=== PATIENT | female | born 1935 | race African-American/Black ===

== ENCOUNTER 2019-03-20 13:08 | Inpatient (IN) | payer MEDICARE, OTHER ==
[~2019-03-20] VITALS: Ht 154.9 cm; Wt 90.7 kg
[2019-03-20 14:19] LABS: BASOPHILS % 0.9 % (0.0-2.0); EOSINOPHILS % 3.3 % (0.0-5.0); HEMATOCRIT. 32.4 % (36.0-48.0); HEMOGLOBIN. 11.1 g/dL (12.0-16.0); LYMPHOCYTES % 19.7 % (20.0-50.0); MEAN CORPUSCULAR HEMOGLOBIN 31.6 pg (28.0-32.0); MEAN CORPUSCULAR VOLUME 92.1 fL (81.0-99.0); MEAN PLATELET VOLUME 7.3 fl (7.4-10.4); MONOCYTES % 11.1 % (2.0-8.0); PLATELET 252 x1000/uL (130-400); RED BLOOD CELL COUNT 3.52 mill/uL (4.2-5.4); RED CELL DISTRIBUTION WIDTH 12.7 % (11.6-14.6)
[2019-03-20 14:25] LABS: CHLORIDE 106 mEq/L (98-107)
[2019-03-20 22:10] VITALS: BP 127/73
[2019-03-20] MEDS ORDERED: MONT10TA21 PO (23:11)
[2019-03-20] MEDS ORDERED: PANT40TA4 PO (23:15)
[2019-03-20] MEDS ORDERED: ALBU6.7H IH (23:15)
[2019-03-20] MEDS ORDERED: AMLO10TA80 PO (23:15)
[2019-03-20] MEDS ORDERED: DIPY75TA37 PO (23:15)
[2019-03-20] MEDS ORDERED: TELM80TA8 PO (23:15)
[2019-03-20] MEDS ORDERED: ATEN100T PO (23:15)
[2019-03-20] MEDS ORDERED: FLUT12AE7 INH (23:15)
[2019-03-21] MEDS ORDERED: IPRATROPIUM/ALBUTEROL 0.5-3(2.5)MG/3ML NEB HHN PRN
[2019-03-21 00:37] VITALS: BP 156/52
[2019-03-21 04:00] VITALS: BP 120/44
[2019-03-21 07:05] LABS: HEMATOCRIT 27.4 % (36.0-48.0); HEMOGLOBIN 9.5 g/dL (12.0-16.0); MEAN CORPUSCULAR HEMOGLOBIN 31.5 pg (28.0-32.0); MEAN CORPUSCULAR VOLUME 91.4 fL (81.0-99.0); PLATELET 222 x1000/uL (130-400); RED CELL DISTRIBUTION WIDTH 12.9 % (11.6-14.6)
[2019-03-21 07:13] LABS: CHLORIDE 108 mEq/L (98-107)
[2019-03-21 07:27] LABS: LDL CHOLESTEROL 97 mg/dL (5-100)
[2019-03-21 07:28] LABS: CREATINE KINASE 32 IU/L (26-192)
[2019-03-21 07:29] LABS: HDL CHOLESTEROL 64 mg/dL (40-59)
[2019-03-21 07:32] LABS: CREATINE KINASE MB FRACTION < 1.0 ng/mL (0.5-3.6)
[2019-03-21 08:00] VITALS: BP 135/53
[2019-03-21] MEDS: LOSARTAN POTASSIUM 100 MG TABLET PO SCH ×2 (09:00→09:23)
[2019-03-21] MEDS ORDERED: TELMISARTAN 80 MG PO SCH (09:00)
[2019-03-21] MEDS: ENOXAPARIN 40MG/0.4ML SYR SUBCUT SCH ×2 (09:00→09:23)
[2019-03-21] MEDS: PANTOPRAZOLE 40MG DR TABLET PO SCH (09:22)
[2019-03-21] MEDS: AMLODIPINE 10MG TABLET PO SCH (09:23)
[2019-03-21] MEDS: ASPIRIN 81MG TABLET PO SCH (09:23)
[2019-03-21] MEDS: DIPYRIDAMOLE 25 MG TABLET PO SCH (10:21)
[2019-03-21 12:00] VITALS: BP 135/50
[2019-03-21 13:01] LABS: BG BASE EXCESS -4.8 mmol/L (-2.0-2.0); BG CARBOXYHEMOGLOBIN 0.3 % (0.5-1.5); BG DEOXYHEMOGLOBIN 2.9 % (0.0-5.0); BG FRACTION INSPIRED OXYGEN 21; BG METHEMOGLOBIN 0.3 % (0.0-1.5); BG OXYGEN SATURATION 97.1 % (92.0-98.5); BG OXYHEMOGLOBIN 96.5 % (94.0-97.0); BG PCO2 30.9 mmHg (35.0-45.0); BG PH 7.406 (7.350-7.450); BG PO2 100.6 mmHg (75.0-100.0); BG SAMPLE SITE LEFT BRACHIAL; BG TOTAL HEMOGLOBIN 10.7 g/dL (12.0-18.0); BG VENT MODE ROOM AIR
[2019-03-21] MEDS ORDERED: IOPAMIDOL 20 ML VIAL IT ONE (14:48)
[2019-03-21 16:00] VITALS: BP 140/72
[2019-03-21 17:01] LABS: CLARITY URINE CLEAR (CLEAR); COLOR URINE YELLOW (YELLOW); KETONES URINE NEGATIVE (NEGATIVE); LEUKOCYTE ESTERASE URINE TRACE (NEGATIVE); NITRITE URINE NEGATIVE (NEGATIVE); OCCULT BLOOD URINE NEGATIVE (NEGATIVE); PH URINE 5.5 (4.5-8.0); PROTEIN URINE NEGATIVE (NEGATIVE); SPECIFIC GRAVITY URINE 1.012 (1.005-1.030); UROBILINOGEN URINE 0.2 E.U./dL (0.2-1.0)
[2019-03-21 17:19] LABS: *AMPHETAMINES SCREEN URINE NEGATIVE (NEGATIVE); *BARBITURATES SCREEN URINE NEGATIVE (NEGATIVE)
[2019-03-21 17:20] LABS: *BENZODIAZEPINES SCREEN URINE NEGATIVE (NEGATIVE); *COCAINE SCREEN URINE NEGATIVE (NEGATIVE); CANNABINOID URINE SCREEN NEGATIVE (NEGATIVE); METHADONE URINE SCREEN NEGATIVE (NEGATIVE); OPIATES URINE SCREEN NEGATIVE (NEGATIVE); PHENCYCLIDINE URINE SCREEN NEGATIVE (NEGATIVE)
[2019-03-21 20:38] VITALS: BP 156/59
[2019-03-21] MEDS: MONTELUKAST SODIUM 10MG TABLET PO SCH (20:58)
[2019-03-22] VITALS (12 sets, daily range): BP systolic 102–152; BP diastolic 45–56
[2019-03-22 00:02] LABS: CREATINE KINASE 37 IU/L (26-192)
[2019-03-22 00:04] LABS: CREATINE KINASE MB FRACTION < 1.0 ng/mL (0.5-3.6)
[2019-03-22 05:59] LABS: BASOPHILS % 0.9 % (0.0-2.0); HEMOGLOBIN. 9.4 g/dL (12.0-16.0); LYMPHOCYTES % 31.3 % (20.0-50.0); MEAN CORPUSCULAR HEMOGLOBIN 31.6 pg (28.0-32.0); MEAN CORPUSCULAR VOLUME 90.9 fL (81.0-99.0); MEAN PLATELET VOLUME 7.7 fl (7.4-10.4); MONOCYTES % 9.4 % (2.0-8.0); NEUTROPHILS % 53.4 % (40.0-76.0); PLATELET 200 x1000/uL (130-400); RED BLOOD CELL COUNT 2.97 mill/uL (4.2-5.4); RED CELL DISTRIBUTION WIDTH 12.7 % (11.6-14.6)
[2019-03-22] MEDS: DIPYRIDAMOLE 25 MG TABLET PO SCH (08:26)
[2019-03-22] MEDS: AMLODIPINE 10MG TABLET PO SCH (08:26)
[2019-03-22] MEDS: LOSARTAN POTASSIUM 100 MG TABLET PO SCH (08:27)
[2019-03-22] MEDS: PANTOPRAZOLE 40MG DR TABLET PO SCH (08:27)
[2019-03-22] MEDS: ENOXAPARIN 40MG/0.4ML SYR SUBCUT SCH (08:28)
[2019-03-22] MEDS: ASPIRIN 81MG TABLET PO SCH (08:28)
[2019-03-22] MEDS ORDERED: TRAMADOL 50MG TABLET PO PRN (16:15)
[2019-03-22] MEDS: LOSARTAN POTASSIUM 50 MG TABLET PO SCH ×2 (16:15→20:56)
[2019-03-22] MEDS: AMLODIPINE 5MG TABLET PO SCH ×2 (16:30→20:55)
[2019-03-22] MEDS ORDERED: HYDROCODONE/ACETAMINOPHEN 5/325MG TABLET PO PRN (17:15)
[2019-03-22] MEDS ORDERED: ACETAMINOPHEN 650MG/20.3ML UDC PO PRN (17:15)
[2019-03-22] MEDS: ACETAMINOPHEN 325MG TABLET PO PRN (17:32)
[2019-03-22] MEDS: MONTELUKAST SODIUM 10MG TABLET PO SCH (20:43)
[2019-03-23] VITALS (8 sets, daily range): BP systolic 90–176; BP diastolic 40–81
[2019-03-23] MEDS: ACETAMINOPHEN 325MG TABLET PO PRN (06:58)
[2019-03-23] MEDS: FAMOTIDINE 20MG TABLET PO SCH (06:58)
[2019-03-23 06:59] LABS: BASOPHILS % 0.9 % (0.0-2.0); EOSINOPHILS % 6.1 % (0.0-5.0); HEMATOCRIT. 27.7 % (36.0-48.0); HEMOGLOBIN. 9.7 g/dL (12.0-16.0); LYMPHOCYTES % 28.6 % (20.0-50.0); MEAN CORPUSCULAR HEMOGLOBIN 31.9 pg (28.0-32.0); MEAN CORPUSCULAR VOLUME 91.3 fL (81.0-99.0); MEAN PLATELET VOLUME 7.6 fl (7.4-10.4); MONOCYTES % 9.5 % (2.0-8.0); NEUTROPHILS % 54.9 % (40.0-76.0); PLATELET 202 x1000/uL (130-400); RED BLOOD CELL COUNT 3.04 mill/uL (4.2-5.4); RED CELL DISTRIBUTION WIDTH 12.8 % (11.6-14.6)
[2019-03-23 07:09] LABS: CHLORIDE 106 mEq/L (98-107)
[2019-03-23] MEDS: ASPIRIN 81MG TABLET PO SCH ×2 (09:00→09:41)
[2019-03-23] MEDS ORDERED: MAGNESIUM 1 G PREMIX 100 ML IV SCH (09:00)
[2019-03-23] MEDS: LOSARTAN POTASSIUM 50 MG TABLET PO SCH ×3 (09:00→21:00)
[2019-03-23] MEDS: ENOXAPARIN 40MG/0.4ML SYR SUBCUT SCH (09:00)
[2019-03-23] MEDS: DIPYRIDAMOLE 25 MG TABLET PO SCH (09:40)
[2019-03-23] MEDS: AMLODIPINE 5MG TABLET PO SCH ×2 (09:41→21:00)
[2019-03-23] MEDS ORDERED: MAGNESIUM 1 G PREMIX 100 ML IV NR (13:00)
[2019-03-23] MEDS ORDERED: CLON0.1T PO (15:13)
[2019-03-23] MEDS ORDERED: MAGNESIUM 2 G PREMIX 50 ML IV NR (15:30)
[2019-03-23] MEDS: MONTELUKAST SODIUM 10MG TABLET PO SCH (22:00)
[2019-03-24 00:07] VITALS: BP 147/54
[2019-03-24 04:00] VITALS: BP 158/60
[2019-03-24] MEDS: FAMOTIDINE 20MG TABLET PO SCH (06:36)
[2019-03-24 07:04] LABS: BASOPHILS % 0.8 % (0.0-2.0); EOSINOPHILS % 6.5 % (0.0-5.0); HEMATOCRIT. 27.7 % (36.0-48.0); HEMOGLOBIN. 9.5 g/dL (12.0-16.0); LYMPHOCYTES % 26.4 % (20.0-50.0); MEAN CORPUSCULAR HEMOGLOBIN 31.1 pg (28.0-32.0); MEAN CORPUSCULAR VOLUME 90.7 fL (81.0-99.0); MEAN PLATELET VOLUME 7.7 fl (7.4-10.4); MONOCYTES % 9.9 % (2.0-8.0); NEUTROPHILS % 56.4 % (40.0-76.0); PLATELET 219 x1000/uL (130-400); RED BLOOD CELL COUNT 3.06 mill/uL (4.2-5.4); RED CELL DISTRIBUTION WIDTH 12.9 % (11.6-14.6)
[2019-03-24 07:47] LABS: CHLORIDE 104 mEq/L (98-107)
[2019-03-24 08:00] VITALS: BP_SYST 112; BP_SYST 154; BP_DIAS 46; BP_DIAS 66
[2019-03-24] MEDS: AMLODIPINE 5MG TABLET PO SCH ×4 (09:00→22:13)
[2019-03-24] MEDS: ASPIRIN 81MG TABLET PO SCH ×2 (09:00→09:54)
[2019-03-24] MEDS: LOSARTAN POTASSIUM 50 MG TABLET PO SCH ×2 (09:00→09:54)
[2019-03-24] MEDS: DIPYRIDAMOLE 25 MG TABLET PO SCH (09:53)
[2019-03-24] MEDS ORDERED: CLONIDINE 0.1MG TABLET PO PRN (14:15)
[2019-03-24 16:18] VITALS: BP_SYST 117; BP_SYST 132; BP_SYST 143; BP_DIAS 39; BP_DIAS 48; BP_DIAS 92
[2019-03-24 20:47] VITALS: BP 139/47
[2019-03-24] MEDS: MONTELUKAST SODIUM 10MG TABLET PO SCH (22:13)
[2019-03-25 00:36] VITALS: BP 129/60
[2019-03-25 00:37] VITALS: BP_SYST 111; BP_SYST 131; BP_DIAS 54; BP_DIAS 62
[2019-03-25 04:00] VITALS: BP 116/48
[2019-03-25] MEDS: AMLODIPINE 5MG TABLET PO SCH ×2 (05:37→13:57)
[2019-03-25] MEDS: FAMOTIDINE 20MG TABLET PO SCH (06:29)
[2019-03-25 08:00] VITALS: BP_SYST 113; BP_SYST 121; BP_SYST 92; BP_DIAS 53; BP_DIAS 55; BP_DIAS 56
[2019-03-25] MEDS: ASPIRIN 81MG TABLET PO SCH (09:00)
[2019-03-25] MEDS: DIPYRIDAMOLE 25 MG TABLET PO SCH (09:13)
[2019-03-25 12:00] VITALS: BP 145/67
[2019-03-25 13:46] VITALS: BP 145/67
== END 2019-03-25 15:20 | disposition home health service (06) | DRG 73 ==
LOC: ER 13:22 → 6WST 18:11 → ENRESERV 21:49
PROVIDERS: ADMIT Ophthalmology; ATTEND Ophthalmology
PROC: 4A00X4Z Measurement of Central Nervous Electrical Activity, External Approach (ICD-10-PCS; principal; 2019-03-22)
DX: G90.8 Other disorders of autonomic nervous system (principal); I50.43 Acute on chronic combined systolic (congestive) and diastolic (congestive) heart failure; G93.40 Encephalopathy, unspecified; E87.1 Hypo-osmolality and hyponatremia; I13.0 Hypertensive heart and chronic kidney disease with heart failure and stage 1 through stage 4 chronic kidney disease, or unspecified chronic kidney disease; I16.0 Hypertensive urgency; I95.1 Orthostatic hypotension; D64.9 Anemia, unspecified; N18.9 Chronic kidney disease, unspecified; E66.01 Morbid (severe) obesity due to excess calories; E83.42 Hypomagnesemia; R09.89 Other specified symptoms and signs involving the circulatory and respiratory systems; E78.5 Hyperlipidemia, unspecified; Z68.37 Body mass index [BMI] 37.0-37.9, adult; Z88.0 Allergy status to penicillin; Z88.1 Allergy status to other antibiotic agents; Z91.018 Allergy to other foods; Z79.899 Other long term (current) drug therapy
CPT/HCPCS: 36415; 36600; 71045; 80048; 80061; 80305; 81003; 82270; 82375; 82550; 82553; 82805; 83540; 83550; 83735; 83880; 84443; 84484; 85027; 93005; 93306; 93880; 93970; 95816; 97162; 99285; C1893; J1650; J3475; Q9966